=== PATIENT | female | born 1980 | race Caucasian/White ===

== ENCOUNTER 2016-08-13 14:09 | Emergency (ER) | payer OTHER ==
[~2016-08-13] VITALS: Ht 162.5 cm; Wt 93.0 kg
[2016-08-13] MEDS ORDERED: Diabeta,Micron2.5 MG PO (14:39)
[2016-08-13] MEDS ORDERED: PRENATAL1 TA3 PO (14:39)
== END 2016-08-13 15:41 | disposition home or self-care (01) ==
LOC: ED 14:09
DX: M25.572 Pain in left ankle and joints of left foot (principal); Z79.899 Other long term (current) drug therapy; X58.XXXA Exposure to other specified factors, initial encounter; Y93.01 Activity, walking, marching and hiking; Y92.89 Other specified places as the place of occurrence of the external cause; Y99.9 Unspecified external cause status